=== PATIENT | male | born 1990 | race Two or more races ===

== ENCOUNTER 2022-12-29 15:33 | Emergency (ER) | payer OTHER ==
[~2022-12-29] VITALS: Ht 172.7 cm; Wt 74.8 kg
[2022-12-29] MEDS ORDERED: AMOX-CLAV 875-1 EACH PO (17:20)
== END 2022-12-29 18:03 | disposition home or self-care (01) ==
LOC: ER 15:33
DX: S31.25XA Open bite of penis, initial encounter (principal); W54.0XXA Bitten by dog, initial encounter; Y93.89 Activity, other specified; Y92.89 Other specified places as the place of occurrence of the external cause; Y99.8 Other external cause status